=== PATIENT | male | born 1975 | race Two or more races ===

== ENCOUNTER → 2021-07-23 09:40 | Outpatient (BNVA) | payer SELFPAY | PROVIDERS: Visit Provider Internal Medicine | DX: Z02.79 Encounter for issue of other medical certificate (principal) ==

== ENCOUNTER → 2022-07-04 10:00 | Outpatient (BNVA) | payer SELFPAY | PROVIDERS: Visit Provider Physician Assistant Medical | DX: Z02.79 Encounter for issue of other medical certificate (principal) ==

== ENCOUNTER → 2023-07-05 09:17 | Outpatient (BNVA) | payer SELFPAY | PROVIDERS: Visit Provider Physician Assistant Medical | DX: Z02.79 Encounter for issue of other medical certificate (principal) ==

== ENCOUNTER → 2024-06-24 09:46 | Outpatient (BNVA) | payer SELFPAY | PROVIDERS: Visit Provider Internal Medicine | DX: Z02.79 Encounter for issue of other medical certificate (principal) ==

== ENCOUNTER 2025-04-23 08:56 | Outpatient (AMB) | payer OTHER, SELFPAY ==
--- OUTSIDE RECORDS SUMMARY | 2024-02-09 06:07 | XMS_ITS | Encounter Summary ---
Author Organization [facility] Address [address] [place] [address] Care Team Providers Care Machine Plate Stacker Name Role Phone Adolfo Treviño MD Primary Care Provider [phone] Encounter Details Date Type Department Care Team (Latest Contact Info) Description 02/09/2024 7:07 AM EDT Hospital Encounter TH HISTORIC ENCOUNTERS EASTERN CONVERSION ONLY Maddie Diaz PA [address] [place] [address] Hepatic fibrosis, unspecified Social History Tobacco Use Types Packs/Day Years Used Date Smoking Tobacco: Former Cigarettes 0.5 Q uit: 01/30/2020 Smokeless Tobacco: Former Alcohol Use Standard Drinks/Week Comments Yes 0 (1 standard drink = 0.6 oz pur e alcohol) Sex and Gender Information Value Date Recorded Sex Assigned at Not on file Legal Sex Male 6:18 PM EST Gender Identity Not on file Sexual Orientation Not on file documented as of this encounter Plan of Treatment Upcoming Encounters Date Type Department Care Team (Late st Contact Info) Description 05/09/2025 10:30 AM EST Office Visit Internal [facility] - [facility] [address] [facility] [place] [address] Bel Fortune NP [address] [place] [address] documented as of this encounter Procedures Procedure Name Priority Date/Time Associated Diagnosis Comments TISSUE EXAM Routine 02/12/2024 12:00 AM EDT US LIVER BIOPSY Routine 02/09/2024 9:53 AM EDT Hepatic fibrosis, unspecified documented in this encounter Results * Tissue exam (02/12/2024 12:00 AM EDT) Case Results LIVER, RANDOM-BIOPSY: - LIVER WITH MILD MACROSTEATOSIS (15%), LOBULAR CHRONIC INFLAMMATION (2-4 FOCI PER 200X MAGNIFICATION), AND BALLOONED HEPATOCYTES, COMPATIBLE WITH NON-ALCOHOLIC STEATOHEPATITIS (NICE). - PORTAL, ANABELLE-PORTAL, AND LOBULAR FIBROSIS (MAREK-MORENO STAGE 2). - SPECIAL STAINS: - TRICHROME: shows portal, anabelle-portal, anabelle-cellular, and anabelle-venular fibrosis (Marek-Moreno stage 2). - IRON: negative. - PAS-D: negative for alpha-1, anti-trypsin globules. - Controls stain appropriately. Note: The biopsy is notable for mild macrosteatosis (15%) with lobular chronic inflammation (2-4 foci per 200x magnification) and ballooned hepatocytes (some in microclusters). The NICE activity score is 5 of 8, and is definite for NICE by pathologic scoring criteria. There is also mild portal chronic inflammation and anabelle-portal and lobular fibrosis. The patient's laboratory values are noted: AST - 106, ALT - 221, ALK. P. - 99, T. bili - 0.8, NATY - negative, ASMA - negative, AMA - negative. Hortencia Hunter M.D. , Pathologist (Case electronically signed 02 12 2024) Pre-Op/Clinical Diagnosis: RANDOM LIVER CORE BIOPSY, ELEVATED LFTS Specimen and Site: LIVER, RANDOM-BIOPSY Gross Description: Labeled random core liver biopsy . Received in formalin are three soft, snowden-brown tissue cores, ranging from 1.6 x 0.1 cm to 1.9 x 0.1 cm, which are wrapped in paper and submitted in toto in one cassette, three pieces, x3. TS Physicians: MADDIE DIAZ M.D./ / FARHEEN FONTANEZ MD/ / HISTORICAL TESTING LAB RESULTING AGENCY 02/12/2024 us Laboratory Results Historical MD LAB PATHOLOGY O GERRY Final Result HISTORICAL TESTING LAB RESULTING AGENCY * US LIVER BIOPSY (02/09/2024 9:53 AM EDT) Anatomical Region Laterality Modality Ultrasound 02/09/2024 7:27 AM EDT Narrative 02/09/2024 9:53 AM EDT [facility] Diagnostic Imaging Department [address] [place] [address] Patient: MATT AGUILA D.O.B./Age/Sex: 1975 - 48 - M Unit#: [id number] Location/Status: [facility] Mnemonic/Ordering Site: LIVERBX/SPUS Ordering Physician: MADDIE DIAZ US Liver Biopsy - 02/09/24 - 0859 Report Status:Signed Ultrasound-guided liver biopsy INDICATION: Elevated LFTs TECHNIQUE/procedure: Patient was placed supine on the ultrasound procedures table. Preliminary ultrasound does not demonstrate any focal liver lesion. A site on the right upper abdomen was marked and sterilely prepped and draped. Following the administration of 1% LIDOCAINE for local anesthesia, the liver was accessed with a 17-gauge coaxial needle. 3 18-gauge core needle biopsy specimens were then obtained. The specimens were deemed to be adequate and placed in formalin. The coaxial needle was then withdrawn while delivering a Gelfoam slurry. Post procedure images do not demonstrate any evidence of bleeding or other complication. A dressing was applied. Patient tolerated the procedure well no immediate complication. Sedation: Moderate intravenous sedation was initiated and maintained for 30 minutes while the patient was independently monitored by the radiology nurse under the supervision of the interventional radiologist. VERSED and fentanyl administered during the procedure. IMPRESSION: Ultrasound-guided liver biopsy Dictating Physician: FARHEEN FONTANEZ MD Electronically Signed by: FARHEEN FONTANEZ MD Dic Date/Time: 02/09/24950 Sign date/Time: 02/09/24952 Procedure Note Farheen Fontanez MD - 02/27/2024 [facility] Diagnostic Imaging Department [address] [place] [address] Patient: MATT AGUILA./Age/Sex: 1975 - 48 -M Unit#: [id number] Location/Status: [facility] Mnemonic/Ordering Site: LIVERBX/SPUS Ordering Physician: MADDIE DIAZ Liver Biopsy - 02/09/24 - 59 Report Status:Signed Ultrasound-guided liver biopsy INDICATION: Elevated LFTs TECHNIQUE/procedure: Patient was placed supine on the ultrasound procedures table.Preliminary ultrasound does not demonstrate any focal liver lesion. A site on theright upper abdomen was marked and sterilely prepped and draped. Followingthe administration of 1% LIDOCAINE for local anesthesia, the liver wasaccessed with a 17-gauge coaxial needle. 3 18-gauge core needle biopsy specimens werethen obtained. The specimens were deemed to be adequate and placed informalin. The coaxial needle was then withdrawn while delivering a Gelfoam slurry.Post procedure images do not demonstrate any evidence of bleeding or other complication. A dressing was applied. Patient tolerated the procedurewell no immediate complication. Sedation: Moderate intravenous sedation was initiated and maintained for30 minutes while the patient was independently monitored by the radiologynurse under the supervision of the interventional radiologist. VERSED andfentanyl administered during the procedure. IMPRESSION: Ultrasound-guided liver biopsy Dictating Physician: FARHEEN FONTANEZ MD Electronically Signed by: FARHEEN FONTANEZ MD Dic Date/Time: 02/09/2451 Sign date/Time: 02/09/2453 us Maddie BOSS IMG US PROCEDURES Final Resul t documented in this encounter Visit Diagnoses Diagnosis Hepatic fibrosis, unspecified documented in this encounter Care Teams Machine Plate Stacker Relationship Specialty Start Date End Date Adolfo Treviño MD PCP - General 11/17/22 03/20/24 documented as of this encounter
--- OUTSIDE RECORDS SUMMARY | 2025-04-23 09:01 | XMS_ITS | Encounter Summary ---
Author Organization [facility] Prior to 03/01/2024 Address [address] [place] [address] Care Team Providers Care Technology Applications Consultant Name Role Phone Michael Bowers MD Primary Care Provider Unavail able Eric Mariscal MD Primary Care Provider Unavailab Cassi Sanches Primary Care Provider Unavailabl Eric Arias MD Primary Care Provider Unavailab Aldair Mireles MD Primary Care Provider Unavail able Eric Britt PA-C Primary Care Provider Unava Adolfo Navarro MD Primary Care Provider Ambreen jensen Encounter Details Date Type Department Care Team Description 12/30/2010 Manager Of Care Report Medical Records [address] [place] [address] Ferimn Lentz Social History Tobacco Use Types Packs/Day Years Used Date Smoking Tobacco: Every Day Comments:4-5 cigarettes florina y Alcohol Use Standard Drinks/Week Comments Not Asked 0 (1 standard drink = 0.6 oz pur e alcohol) Sex Assigned at Date Recorded Not on file Job Start Date Occupation Industry Not on file Not on file Not on file documented as of this encounter Plan of Treatment Not on file documented as of this encounter Visit Diagnoses Not on filedocumented in this encounter Care Teams Technology Applications Consultant Relationship Specialty Start Date End Date Michael Bowers MD PCP - General 11/25/10 06/04/12 Eric Mariscal MD PCP - General Internal Medicine 06/05/12 11/20/16 Cassi Haynes PCP - General Internal Medicine 11/21/16 12/07/16 Eric Mariscal MD PCP - General Internal Medicine 12/08/16 04/12/20 Aldair Hunter MD PCP - General Internal Medicine 04/13/20 12/31/20 Eric Britt PA-C PCP - General Internal Medicine 01/01/21 05/20/21 Adolfo Treviño MD PCP - General Family Practice 05/21/21 documented as of this encounter
--- OUTSIDE RECORDS SUMMARY | 2025-04-23 09:01 | XMS_ITS | Encounter Summary ---
Author Organization [facility] Prior to 03/01/2024 Address [address] [place] [address] Care Team Providers Care Adobe Layer Helper Name Role Phone LisaCassi miramontes Primary Care Provider Eric Birmingham MD Primary Care Provider Unavailab Aldair Mireles MD Primary Care Provider Unavail Eric Mckeon PA-C Primary Care Provider Adolfo Judge MD Primary Care Provider Ambreen jensen Reason for Visit * Reason Onset Date Comments APPOINTMENT 11/28/2016 Encounter Details Date Type Department Care Team Description 11/28/2016 Telephone Radiology - [address] [address] Eric Mariscal MD APPOINTMENT Social History Tobacco Use Types Packs/Day Years Used Date Smoking Tobacco: Former Cigarettes 0.5 Q uit: 01/29/2011 Smokeless Tobacco: Former Comments:4-5 cigarettes florina y Alcohol Use Standard Drinks/Week Comments Yes 0 (1 standard drink = 0.6 oz pur e alcohol) 2 beers per week Sex Assigned at Date Recorded Not on file Job Start Date Occupation Industry Not on file Not on file Not on file documented as of this encounter Miscellaneous Notes * Telephone Encounter - Xena Gay - 11/28/2016 11:17 AM EDT F.y.i. Orders for an echocardiogram will be removed from our schedule after several failed attemptsto schedule. A new order will need to be entered if this is needed in the future. Thank you documented in this encounter Plan of Treatment Not on file documented as of this encounter Visit Diagnoses Not on filedocumented in this encounter Care Teams Adobe Layer Helper Relationship Specialty Start Date End Date Cassi Haynes PCP - General Internal Medicine 11/21/16 12/07/16 Eric Mariscal MD PCP - General Internal Medicine 12/08/16 04/12/20 Aldair Hunter MD PCP - General Internal Medicine 04/13/20 12/31/20 Eric Britt PA-C PCP - General Internal Medicine 01/01/21 05/20/21 Adolfo Treviño MD PCP - General Family Practice 05/21/21 documented as of this encounter
--- OUTSIDE RECORDS SUMMARY | 2025-04-23 09:01 | XMS_ITS | Encounter Summary ---
Author Organization [facility] Prior to 03[facility]01[facility]24 Address [address] [place] [address] Care Team Providers Care Welfare Supervisor Name Role Phone Adolfo Treviño MD Primary Care Provider Ambreen jensen Encounter Details Date Type Department Care Team Description 05/05/2023 Telephone Gastroenterology - [place] [address] [facility] [address] [place] [address] Maddie Diaz DScPAS Social History Tobacco Use Types Packs/Day Years Used Date Smoking Tobacco: Former Cigarettes 0.5 18 Q uit: 01/30/2020 Smokeless Tobacco: Former Comments:4-5 cigarettes florina y Alcohol Use Standard Drinks/Week Comments Yes 0 (1 standard drink = 0.6 oz pur e alcohol) 2 beers per week Sex Assigned at Date Recorded Not on file Job Start Date Occupation Industry Not on file Not on file Not on file documented as of this encounter Miscellaneous Notes * Telephone Encounter - Pipe Kwok PA-C - 05/05/2023 12:18 PM EST Lab needed code change for diagnosis for lab but none of these numbers are excepted by our computer * Telephone Encounter - Kia Moreno C.M.A. - 05/05/2023 8:56 AM EST HEMOCHROMATOSIS DNA MUTA (Order #[id number]) on 05/04/23 Maurizio Betancur The lab called and said that the Dx code needs to be change on this lab order can you please changethis out for Veda as it can not wait until she is in the office on Monday. They said one of these codes needs to be placed to get covered E83.01 E83.110 E83.118 E83.119 E83.19 Thank you so much documented in this encounter Plan of Treatment Not on file documented as of this encounter Visit Diagnoses Not on filedocumented in this encounter Care Teams Welfare Supervisor Relationship Specialty Start Date End Date Adolfo Treviño MD PCP - General Family Practice 05/21/21 documented as of this encounter
--- OUTSIDE RECORDS SUMMARY | 2025-04-23 09:01 | XMS_ITS | Encounter Summary ---
Author Organization [facility] Address [address] [place] [address] Care Team Providers Care Gauge Maker Apprentice Name Role Phone Catherine Valles MD Primary Care Provider [phone] Encounter Details Date Type Department Care Team (Late st Contact Info) Description 03/05/2025 [facility] [address] [facility] [place] [phone] Bel Fortune NP [address] [facility] [place] [address] Social History Tobacco Use Types Packs/Day Years [...] AM EST [facility] [address] [facility] [place] [phone] Bel Fortune NP [address] [facility] [place] [address] documented as of this encounter Visit Diagnoses Not on filedocumented in this encounter Additional Health Concerns Assessment Noted Time PHQ-9 Depression Total Score: 0 03/05/20 10:45 AM EST documented as of this encounter Care Teams Gauge Maker Apprentice Relationship Specialty Start Date End Date Catherine Valles MD [address] [facility] [place] [address] PCP - General Internal Medicine 04/07/25 documented as of this encounter
--- OUTSIDE RECORDS SUMMARY | 2025-04-23 09:01 | XMS_ITS | Clinical Summary ---
Author Organization [address] [facility] Address [address] [place] [address] Phone Care Team Providers Care Production Team Member Name Role Phone Catherine Valles MD Primary Care Provider Allergies No known active allergies Medications metoprolol succinate (TOPROL-XL) 50 mg 24 hr tablet Take 1 tablet (50 mg total) by mouth 1 (one) time each day. Do not crush or chew. 30 each 1 03/05/2025 Active Active Problems Problem Noted Date Diagnosed Date Primary hypertension 03/05/2025 NICE (nonalcoholic steatohepatitis) 02/15/2024 Class 2 obesity due to exces s calories without serious comorbidity with body mass index (BMI) of 37.0 to 37.9 in adult 02/15/2024 Nephrolithiasis 05/06/2020 Fatty liver 05/06/2020 CTS (carpal tunnel syndrome) 12/14/2016 Overview (02/15/2024): EMG 12/15 Chronic heartburn 10/23/2013 Elevated LFTs 06/25/2012 Encounters Date Type Department Care Team Description 03/05/2025 10:45 AM EST Office Visit Internal Medicine - [facility] [address] [place] [phone] Bel Fortune NP Primary hypertension (Primary Dx); Palpitations; Acute non intractable tension-type headache 03/05/2025 Results Follow-Up Internal Medicine - [facility] [address] [place] [address] Bel Fortune NP 02/27/2025 10:00 AM EDT Ancillary Procedure [facility] - [facility] [address] [facility] [address] [place] [address] Palpitations 02/05/2025 10:00 AM EDT [facility] [address] [place], [place] [phone] Bel Fortune NP Elevated blood pressure reading (Primary Dx); Palpitations; Nonintractable headache, unspecified chronicity pattern, unspecified headache type; Elevated LFTs; Fatty liver; Class 2 obesity due to excess calories without serious comorbidity with body mass index (BMI) of 37.0 to 37.9 in adult from Last 3 Months Immunizations Immunization Administration Dates Next Due Td Tetanus diptheria (Tdvax) 7yo and older 09/22 Tdap Tetanus diptheria acell ular pertussis (Boostrix; Adacel) 7yo and older 11/30/2010 Surgical History Surgery Date Site/Laterality Comments OTHER SURGICAL HISTORY PROCEDURE: ---- OTHER ----; COMMENT: kidney stone Medical History Medical History Date Comments Elevated LFTs 06/25/2012 DX:Elevated LFTs Headache(784.0) 01/16/2013 DX:Headache(784. 0); COMMENT: Dr. Vasquez - 01/14/13 -- daily pressure-like diffuse headaches; physical therapy for myofascial release; followup 3 months Primary hypertension 03/05/2025 Family History Medical History Relation Name Comments Hypertension Father Stroke Father Hypertension Mother Hypertension Sister Blindness Neg Hx Cataracts Neg Hx Diabetes Neg Hx Glaucoma Neg Hx Macular degeneration Neg Hx Other cancer Neg Hx Strabismus Neg Hx Relation Name Status Comments Father Mother Sister Social History Tobacco Use Types Packs/Day Years [...] on file Sexual Orientation Not on file Last Filed Vital Signs Vital Sign Reading Time Taken Comments Blood Pressure 139/92 03/05/2025 10:56 AM EST Pulse 69 03/05/2025 10:44 AM EST Temperature 36.4 C (97.6 F) 01/15/2025 9:14 AM EDT Respiratory Rate - - Oxygen Saturation 97% 01/15/2025 9:14 AM EDT Inhaled Oxygen Concentration - - Weight 114 kg (252 lb 3.2 oz) 03/05/2025 10:44 A M EST Height 172.7 cm (5' 8 ) 03/05/2025 10:44 AM EST Body Mass Index 38.35 03/05/2025 10:44 AM EST Plan of Treatment Upcoming Encounters Date Type Department Care Team (Late st Contact Info) Description 05/09/2025 10:30 AM EST [facility] [address] [place] [address] Bel Fortune, JACKLYN [address] [place] [address] Health Maintenance Due Date Last Done Comments Hepatitis B Vaccines (1 of 3 - 19+ 3-dose series) 1996 HIV Screening 04/05/2022 Social Influencers of Health Screening 04/05/2022 COVID-19 Vaccine (4 - 2024-2 6 season) 2024 06/02/2021, 08/29/2020, 08/01/2020 Influenza Vaccine (#1) 2024 Hypertension/CHF/CAD Annual BMP Blood Test 03/05/2025 05/04/2023, 11/12/2019 Cholesterol Screening (Lipid Panel) 05/07/2025 05/07/2020 DTaP,Tdap,and Td Vaccines (4 - Td or Tdap) 09/22/2029 09/23/2019, 11/30/2010, 01/29/2007 Colorectal Cancer Screening: Colonoscopy 09/12/2032 09/12/2022 RSV Immunization Adult Patients (1 - 1-dose 75+ series) 2052 Hepatitis C Screening Completed 06/15/2021 Depression Screening Completed 03/05/2025 HIB Vaccines Aged Out No longer eligi ble based on patient's age to complete this topic HPV Vaccines Aged Out No longer eligi ble based on patient's age to complete this topic Hepatitis A Vaccines Aged Out No long er eligible based on patient's age to complete this topic IPV Vaccines Aged Out No longer eligi ble based on patient's age to complete this topic MMR Vaccines Aged Out No longer eligi ble based on patient's age to complete this topic Meningococcal ACWY Vaccine Aged Out N o longer eligible based on patient's age to complete this topic Meningococcal B Vaccine Aged Out No l onger eligible based on patient's age to complete this topic Pneumococcal Vaccine: Pediatrics (0 to 5 Years) and At-Risk Patients (6 to 49 Years) Aged Out No longer eligible b ased on patient's age to complete this topic RSV Immunization Patients Under 20 months Aged Out No longer eligible b ased on patient's age to complete this topic Varicella Vaccines Aged Out No longer eligible based on patient's age to complete this topic Procedures Procedure Name Priority Date/Time Associated Diagnosis Comments CARDIAC HOLTER MONITOR (REPORT GENERATED IN HOUSE) Routine 02/27/2025 9:46 AM EDT Palpitations ANNUAL BMP BLOOD TEST Routine 05/04/2023 EXTERNAL COLONOSCOPY REPORT Routine 09/12/2022 3:34 PM EDT HEPATITIS C SCREENING Routine 06/15/2021 LIPID PANEL Routine 05/07/2020 from Last 3 Months or Most Recently Relevant to Health Maintenance Results * CARDIAC HOLTER MONITOR (REPORT GENERATED IN HOUSE) (02/27/2025 9:46 AM EDT) Anatomical Region Laterality Modality Cardiac Diagnost ic Narrative 03/04/2025 12:23 PM EST [facility] DI[facility]STIC [facility]ING DEPARTMENT [address] [place] [address] TEL: FAX: Type of test: 48 hour Holter Monitor Date of test: 02/27/25 Ordering provider: Bel Tong, PROPERTY MANAGEMENT COORDINATOR Reason for Test: Palpitations PVCA Cadd Operator Findings: 1: The predominant rhythm was Normal Sinus Rhythm. 2: Two PACs. No PVCs. 3: No pauses noted. Longest R-R 1.2 sec. 4: Diary returned with no entries. Impression: Normal sinus rhythm with no significant documented arrhythmias or bradycardia. Result [facility] Bel Fortune PROPERTY MANAGEMENT COORDINATOR CV CARDIAC SERVICES PROCEDURES Final Result * Annual BMP Blood Test (05/04/2023) Pathologist [facility] Annual BMP Blood Test Abstracted Result [facility] Provider HEALTH MAINTENANCE Final Result * External Colonoscopy Report (09/12/2022 3:34 PM EDT) Anatomical Region Laterality Modality Endoscopy Result [facility] Provider GI~PROCEDURE ORDERABLES F inal Result * Hepatitis C Screening (06/15/2021) Pathologist [facility] Hepatitis C Screening Abstracted Result [facility] Provider HEALTH MAINTENANCE Final Result * (ABNORMAL) Lipid panel (05/07/2020) [facility] LDL/HDL Ratio 5(A) 0 - 4 Triglycerides 226(A) 0 - 150 mg/dL Cholesterol 185 0 - 200 mg/dL HDL 40 >=40 mg/dL LDL Cholesterol 100 0 - 100 mg/dL Blood Venous blood specimen / Unknown Result [facility] Provider LAB BLOOD ORDERABLES Carey l Result from Last 3 Months or Most Recently Relevant to Health Maintenance Insurance [facility] PUBLIC [facility] Advance Directives Documents on File Type Date Recorded Patient Sybase Developer Expl anation Health Care Decision (hx) 03/07/2011 AD CHAVEZ DIRECTIVE Health Care Decision (hx) 03/07/2011 AD CHAVEZ DIRECTIVE Health Care Decision (hx) 03/07/2011 AD CHAVEZ DIRECTIVE Health Care Decision (hx) 03/07/2011 AD CHAVEZ DIRECTIVE Health Care Decision (hx) 03/07/2011 AD CHAVEZ DIRECTIVE Health Care Decision (hx) 03/07/2011 AD CHAVEZ DIRECTIVE Care Teams Production Team Member Relationship Specialty Start Date End Date Catherine Valles MD [address] [facility] [place] [address] PCP - General Internal Medicine 04/07/25
--- OUTSIDE RECORDS SUMMARY | 2025-04-23 09:01 | XMS_ITS | Encounter Summary ---
Author Organization [facility] Prior to 03/01/2024 Address [address] [place] [address] Care Team Providers Care Lace And Textiles Restorer Name Role Phone Adolfo Treviño MD Primary Care Provider Ambreen jensen Reason for Visit * Reason Onset Date Comments medication problems 02/23/2024 Encounter Details Date Type Department Care Team Description 02/23/2024 Telephone Gastroenterology - [place] [address] [facility] [address] [place] [address] Maddie Diaz DScPAS medication problems Social History Tobacco Use Types Packs/Day Years [...] encounter Miscellaneous Notes * Telephone Encounter - Anastasiia Davis - 02/23/2024 11:26 AM EDT Received a call that this rx needs to go through [facility] not the local pharmacy. Fax number [phone] documented in this encounter Plan of Treatment Not on file documented as of this encounter Visit Diagnoses Not on filedocumented in this encounter Care Teams Lace And Textiles Restorer Relationship Specialty Start Date End Date Adolfo Treviño MD PCP - General Family Practice 05/21/21 documented as of this encounter
--- OUTSIDE RECORDS SUMMARY | 2025-04-23 09:01 | XMS_ITS | Encounter Summary ---
[facility] to [facility]24 Address [address] [place] [address] Care Team Providers Care Crusher Feeder Name Role Phone Adolfo Treviño MD Primary Care Provider Ambreen jensen Reason for Visit * Reason Onset Date Comments Prior Authorization 02/28/2024 Encounter Details Date Type Department Care Team Description 02/28/2024 Telephone Gastroenterology - [place] [address] [facility] [address] [place] [id number] Maddie Diaz DScPAS Prior Authorization Social History Tobacco Use Types Packs/Day Years [...] encounter Miscellaneous Notes * Telephone Encounter - Gil Neal M.A. - 02/28/2024 4:21 PM EDT PA submitted on [facility] Dx Code - K76.0 TEX PA returned [facility] does not handle the prior auth for this medication. Will call for more information tomorrow during business hours. * Telephone Encounter - Lana Cameron - 02/28/2024 3:42 PM EDT Prior Authorization for Medication-do not complete and send this encounter unless you have the fax from the pharmacy. Is this a Cover My Meds request: Yes -- [place] Code [id number] Name of Medication Resmetirom (Rezdiffra) Dose of Medication 100 MG Tab What is the RX # from the faxed refill? How does patient take this med? Take 1 Tablet by mouth daily What Pharmacy did the fax come from: [facility] Pharmacy fax #: [phone] documented in this encounter Plan of Treatment Not on file documented as of this encounter Visit Diagnoses Not on filedocumented in this encounter Care Teams Crusher Feeder Relationship Specialty Start Date End Date Adolfo Treviño MD PCP - General Family Practice 05/21/21 documented as of this encounter
--- OUTSIDE RECORDS SUMMARY | 2025-04-23 09:01 | XMS_ITS | Encounter Summary ---
Author Organization [facility] Prior to 03/01/2024 Address [address] [place] [address] Care Team Providers Care President Ergonomic Consulting Name Role Phone Adolfo Treviño MD Primary Care Provider Ambreen jensen Encounter Details Date Type Department Care Team Description 01/11/2024 Telephone Gastroenterology - [place] [address] [facility] [address] [place] [address] Maddie Diaz DScPAS Social History [...] on filedocumented in this encounter Care Teams President Ergonomic Consulting Relationship Specialty Start Date End Date Adolfo Treviño MD PCP - General Family Practice 05/21/21 documented as of this encounter
--- OUTSIDE RECORDS SUMMARY | 2025-04-23 09:01 | XMS_ITS | Encounter Summary ---
[facility] Address [address] [place] [address] Care Team Providers Care Conveyor System Dispatcher Name Role Phone Adolfo Treviño MD Primary Care Provider Ambreen jensen Encounter Details Date Type Department Care Team Description 01/14/2024 Telephone Gastroenterology - [place] [address] [facility] [address] [place] [address] Maddie Diaz DScPAS Social History [...] encounter Miscellaneous Notes * Telephone Encounter - Kia Moreno C.M.A. - 01/30/2024 1:43 PM EDT Left another message with Debbie * Telephone Encounter - Kia Moreno C.M.A. - 01/29/2024 10:55 AM EDT Left a detailed message with debbie to see if we can gewt the liver biopsy changed to a Monday * Telephone Encounter - Kia Moreno C.M.A. - 01/23/2024 10:17 AM EDT Patient would like to move forward with liver biopsy * Telephone Encounter - Rachna Muñoz - 01/16/2024 3:06 PM EDT LM for pt to call back. documented in this encounter Plan of Treatment Not on file documented as of this encounter Visit Diagnoses Not on filedocumented in this encounter Care Teams Conveyor System Dispatcher Relationship Specialty Start Date End Date Adolfo Treviño MD PCP - General Family Practice 05/21/21 documented as of this encounter
--- OUTSIDE RECORDS SUMMARY | 2025-04-23 09:01 | XMS_ITS | Encounter Summary ---
Author Organization [facility] Prior to 03/01/2024 Address [address] [place] [address] Care Team Providers Care Navy Seal Name Role Community Services ManagerEric Mariscal MD Primary Care Provider UnavailCassi Hidalgo Primary Care Provider Unavailabl Eric Arias MD Primary Care Provider Unavailab Aldair Mierles MD Primary Care Provider Unavail able Eric Britt PA-C Primary Care Provider Adolfo Judge MD Primary Care Provider Ambreen jensen Encounter Details Date Type Department Care Team Description 01/18/2014 [facility] Medical Records [address] [place] [address] Abstract, Provider Social History Tobacco Use Types Packs/Day Years Used Date Smoking Tobacco: Former Cigarettes 0.5 Q uit: 01/29/2011 Smokeless Tobacco: Never Comments:4-5 cigarettes florina y Alcohol Use Standard Drinks/Week Comments Yes 0 (1 standard drink = 0.6 oz pur e alcohol) 2 beers per week Sex Assigned at Date Recorded Not on file Job Start Date Occupation Industry Not on file Not on file Not on file documented as of this encounter Plan of Treatment Not on file documented as of this encounter Procedures Procedure Name Priority Date/Time Associated Diagnosis Comments OUTSIDE LAB Routine 10/30/2013 documented in this encounter Results * OUTSIDE LAB (10/30/2013) Provider Abstract LAB documented in this encounter Visit Diagnoses Not on filedocumented in this encounter Care Teams Navy Seal Relationship Specialty Start Date End Date Eric Mariscal MD PCP - General Internal [...]
--- OUTSIDE RECORDS SUMMARY | 2025-04-23 09:01 | XMS_ITS | Clinical Summary ---
Author Organization [facility] Prior to 09/28/24 Address [address] [place] [address] Care Team Providers Care Spray Gun Repairer Helper Name Role Phone Adolfo Treviño MD Primary Care Provider Unavailable Allergies No known active allergies Medications No known medications Social History Tobacco Use Types Packs/Day Years Used Date Smoking Tobacco: Former Cigarettes Q uit: 2020 Tobacco Cessation:Counseling Given: Not Answered Alcohol Use Standard Drinks/Week Comments Yes 0 (1 standard drink = 0.6 oz pure alcohol) 2-3 beers on Fridays and Saturdays but not every weekend Sex and Gender Information Value Date Recorded Sex Assigned at Not on file Gender Identity Not on file Sexual Orientation Not on file Job Start Date Occupation Industry Not on file Not on file Not on file Last Filed Vital Signs Vital Sign Reading Time Taken Comments Blood Pressure 149/90 02/08/2023 10:11 AM EDT Pulse 78 02/08/2023 10:11 AM EDT Temperature 36.7 C (98 F) 02/08/2023 10:11 AM EDT Respiratory Rate - - Oxygen Saturation 94% 02/08/2023 10:11 AM EDT Inhaled Oxygen Concentration - - Weight 111.1 kg (245 lb) 02/08/2023 10:11 AM EDT Height 172.7 cm (5' 8 ) 02/08/2023 10:11 AM EDT Body Mass Index 37.25 02/08/2023 10:11 AM EDT Plan of Treatment Health Maintenance Due Date Last Done Comments Hepatitis B Vaccines (1 of 3 - 3-dose series) 1977 Hepatitis C Screening 1977 COVID-19 Vaccine (#1) 01/29/1978 Depression Screening 1989 Preventative Health Evaluation 07/31/1995 DTap / Tdap / Td (2 - Td or Tdap) 11/30/2020 11/30/2010, 01/29/2007 Colon Cancer Screening (Colonoscopy) 2022 Influenza Vaccine (#1) 2024 Pneumococcal Vaccine Aged Out No long er eligible based on patient's age to complete this topic RSV Ped < 20 months Aged Out No longe r eligible based on patient's age to complete this topic Care Teams Spray Gun Repairer Helper Relationship Specialty Start Date End Date Adolfo Treviño MD PCP - General Family Medicine 11/17/22
--- OUTSIDE RECORDS SUMMARY | 2025-04-23 09:01 | XMS_ITS | Encounter Summary ---
Author Organization [facility] Prior to 03/01/2024 Address [address] [place] [address] Care Team Providers Care Fiberglass Luggage Molder Name Role Phone Adolfo Treviño MD Primary Care Provider Ambreen jensen Encounter Details Date Type Department Care Team Description 02/23/2024 Refill Gastroenterology - [place] [address] [facility] [address] [place] [address] Maddie Diaz DScPAS Social History [...] Telephone Encounter - Kia Moreno C.M.A. - 02/23/2024 11:43 AM EDT Rx went to the wrong pharmacy, medication is pending with proper pharmacy. documented in this encounter Plan of Treatment Not on file documented as of this encounter Visit Diagnoses Not on filedocumented in this encounter Care Teams Fiberglass Luggage Molder Relationship Specialty Start Date End Date Adolfo Treviño MD PCP - General Family Practice 05/21/21 documented as of this encounter
--- OUTSIDE RECORDS SUMMARY | 2025-04-23 09:01 | XMS_ITS | Encounter Summary ---
Author Organization [facility] Prior to 03/01/2024 Address [address] [place] [address] Care Team Providers Care Tare Worker Name Role Phone Michael Bowers MD Primary Care Provider Unavail Eric Lopez MD Primary Care Provider Unavailab Cassi Sanches Primary Care Provider UnavailEric Pierce MD Primary Care Provider Unavailab Aldair Mireles MD Primary Care Provider Unavail able Eric Britt PA-C Primary Care Provider Chantelleva Adolfo Navarro MD Primary Care Provider Ambreen jensen Encounter Details Date Type Department Care Team Description 11/29/2010 Release of Information Medical Records [address] [place] [address] Abstract, Provider Social History Tobacco Use Types [...] on filedocumented in this encounter Care Teams Tare Worker Relationship Specialty Start Date End Date Michael Bowers MD PCP - General 11/25/10 06/04/12 Eric Mariscal MD PCP - General Internal Medicine 06/05/12 11/20/16 Cassi Haynes PCP - General Internal Medicine 11/21/16 12/07/16 Eric aMriscal MD PCP - General Internal Medicine 12/08/16 04/12/20 Aldair Hunter MD PCP - General Internal Medicine 04/13/20 12/31/20 Eric Britt PA-C PCP - General Internal Medicine 01/01/21 05/20/21 Adolfo Treviño MD PCP - General Family Practice 05/21/21 documented as of this encounter
--- OUTSIDE RECORDS SUMMARY | 2025-04-23 09:01 | XMS_ITS | Encounter Summary ---
Author Organization [facility] Prior to 03/01/2024 Address [address] [place] [address] Care Team Providers Care Vice President Of Development Name Role Design Engineer ProductsEric Mariscal MD Primary Care Provider UnavailCassi Hidalgo Primary Care Provider Unavailabl e Eric Mariscal MD Primary Care Provider Unavailab Aldair Mireles MD Primary Care Provider Unavail able Eric Britt PA-C Primary Care Provider Adolfo Judge MD Primary Care Provider Ambreen jensen Encounter Details Date Type Department Care Team Description 07/17/2012 Transfer Records Medical Records [address] [place] [id number] Abstract, Provider Social History Tobacco Use Types Packs/Day Years Used Date Smoking Tobacco: Former Cigarettes 0.5 Q uit: 01/29/2011 Comments:4-5 cigarettes florina y Alcohol Use Standard [...] on filedocumented in this encounter Care Teams Vice President Of Development Relationship Specialty Start Date End Date Eric [...]
--- OUTSIDE RECORDS SUMMARY | 2025-04-23 09:02 | XMS_ITS | Encounter Summary ---
Author Organization [facility] Prior to 03/01/2024 Address [address] [place] [address] Care Team Providers Care Windows Server Engineer Name Role Phone Eric Britt PA-C Primary Care Provider Adolfo Judge MD Primary Care Provider Ambreen jensen Encounter Details Date Type Department Care Team Description 01/05/2021 Transfer Records Medical Records [address] [place] [address] Eric Britt PA-C Social History Tobacco Use Types Packs/Day Years [...] on filedocumented in this encounter Care Teams Windows Server Engineer Relationship Specialty Start Date End Date Eric Britt PA-C PCP - General Internal Medicine 01/01/21 05/20/21 Adolfo Treviño MD PCP - General Family Practice 05/21/21 documented as of this encounter
[2025-04-23 11:12] VITALS: BMI 37.5
--- NOTE | 2025-04-23 11:12 | MHC.OFFVISWM ---
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 *MAGNETIC LOCATER* Soft Water Mechanic Required: Yes Soft Water Mechanic Services: Soft Water Mechanic Present Information Interpreted: clinical only Allergies No Known Allergies Allergy (Verified 04/23/25 11:15) Medication List - Last Reconciled 04/23/25 by Damon Lucio MD metoprolol tartrate 25 mg PO DAILY HPI 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 *MAGNETIC LOCATER*: Details: Start time: 11.03am, End time: 12.03pm ?I spent 55 minutes speaking with the patient on the phone plus an additional 5 minutes reviewing and updating records for a total of 60 minutes HPI Comments Details: Previous weight loss efforts: Self diets and exercise Wakes up: 4.30am, Sleeps: 10pm Breakfast: (9am eggs and yogurt) Lunch: 12-1pm (eggs, plantains, chicken) Dinner: 6-7pm (meat, rice) Snacks: 9pm (snack) Exercise: none Beverages: Coffee (black, 1 cup/d), Tea: none, Soda: 2/week, Juice: 2/wk (cranberry juice), ETOH: beers x2/wk PFSH Medical History (Updated 04/23/25 @ 11:44 by Damon Lucio MD) Back pain Steatosis, liver Hypertension BMI 37.0-37.9, adult Obesity Surgical History (Updated 03/04/25 @ 11:57 by Noemi Balbuena CMA) No history of previous surgery Family History (Updated 03/04/25 @ 11:58 by Noemi Balbuena CMA) Mother Hypertension Father Hypertension Stroke Social History (Updated 03/04/25 @ 11:58 by Noemi Balbuena CMA) Alcohol intake: current Patient Tobacco Use Status: Former Tobacco user Physical Exam Vital Signs: BMI result Body Mass Index 37.5 Telehealth Telehealth Telehealth Platform: Telephone Location of provider rendering services: practice address Location of patient: address on file Patient Identification confirmed using: Name, : Yes Telehealth method: voice only Patient verbally consented to treatment: Yes Patient verbally consented to billing insurance company: Yes Patient informed of any privacy concerns related to visit: Yes Minutes spent on Phone/Video with Pt.: 60 Assessment & Plan Assessment & Plan (1) Obesity: Code(s): E66.9 - Obesity, unspecified Category: Medical Qualifiers: Obesity type: due to excess calories Obesity classification: adult class 2 (BMI 35 - 39.9) Serious obesity comorbidity presence: with serious comorbidity Body mass index: BMI 37.0-37.9 Qualified Code(s): E66.812 - Obesity, class 2; Z68.37 - Body mass index [BMI] 37.0-37.9, adult Plan: 1.? Plan for lap sleeve gastrectomy. If diaphragmatic or ventral hernias are present at time of surgery, these will be repaired laparoscopically as well. I emphasized the importance of close follow-up, adherence to instructions and good communication. The surgery does not replace the need to change your lifestlyle which is the cause of the obesity problem. The surgery provides the motivation to try again to change your lifestyle, it reduces the appetite and make the transition to a better lifestyle easier and doubles the amount of weight you would lose compared to doing the lifestyle change without the surgery. You will need to be on a liquid diet with protein shakes for 2 weeks before surgery to maximize weight loss and boost your nutritional status to recover better from surgery and also for the first two weeks after surgery to let the stomach heal before we introduce other foods. After the first 2 weeks we will introduce protein bars and soft foods like scrambled eggs, cottage cheese and yogurt and after the 6th week will introduce meat, fish and cooked vegetables in small amounts. Over time you should be able to eat everything in small amounts. Side effects like nausea, vomiting, heartburn or abdominal pain are not common in the practice unless you are not following in the practice. This operation requires lifetime commitment to following in our practice and communication with me. You will much less weight and experience side effects if you don?t communicate or not following in the practice. Complications are rare and in our practice is about 1/10 of the national average. However, you can develop bleeding that may require transfusion (hasn?t happened for year in the practice), you may from complications (we did not have any deaths in the practice) and infections. Infections are usually a result of breakdown in communication or not understanding or following directions correctly. They are difficult to treat, they can happen during the first 6 weeks, they may require to be in the hospital for weeks or even months, not being able to eat by mouth and you may have drains and surgeries to try and correct the issue. Other risks and complications include possible conversion to an open procedure, leaks, small bowel obstruction, blood clots, cardiac, or pulmonary complications, as termite helper complications such as ulcers, insufficient weight loss and vitamin deficiencies. 2. Nutritional counseling. Start with one premade PREMIER protein (buy at [employer] or [employer]) shake (mix 4oz of Premier mixed with 4oz low fat unsweetened almond milk each) at 6am-8am, one protein bar (Fit Crunch protein bar, buy at [employer], or [employer]) at 9am-11am, another premade PREMIER protein shake (mix 4oz of Premier mixed with 4oz low fat unsweetened almond milk each) at 12pm-2pm, another Fit Crunch protein bar at 3pm-5pm,? dinner at 6pm (10 forks of protein and 10 forks of salad/vegetables) and one more Fit Cruch protein bar after dinner at 8pm-10pm So you do 2 protein shakes, 3 protein bars and one meal per day. Meal to include lean meat (beef, fish, pork, turkey, chicken), or malay yogurt, or egg whites, or beans with a salad with olive oil and fruits (berries, pears, apples, kiwi). Avoid salt, breads, potatoes, rice, pasta, desserts. 3. Each shake would be drunk slowly, like coffee in a period of 2 hours. 4. Cut each bar in 4 pieces and eat each piece in 30min ?to make each bar last 2 hours. 5. I emphasized the importance of measuring accurately the food portion and measure it when serving the food in plate 6. The meal portions include 10 full-size forks of meat and 10 full-size forks of salad. You always eat the meat portion but you can replace up to 5 forks for salad/vegetables with rice, potatoes or pasta, or a fruit ?if you like. The less you do it the better weight loss will be. 7. One full-size fork is what it can be scooped on the fork without falling aside and not what can be bit with the fork. Use regular forks like those you find in a typical restaurant. 8.? Please buy the body composition scale we discussed and send me weight measurements as soon as possible and then once a week. Always include your diet and exercise plan. 9. If you decide to stay at the gym start treadmill with an incline of 2.0 and speed of 3.0. Increase incline by 1 every 3 min to a max incline of 8.0, stay 3min at 8.0 and then return to 2.0 and repeat same steps until calorie goal is met. Goal is to burn 2000 calories per week on exercise, which means either 300 calories daily, or 400 calories 5 days per week, or 500 calories 4 days per week, or 650 calories 3 days per week. 10. The best choice would be to purchase a stationary bike at home that can track calories. If you get one, please start stationary bike at a resistance level of 4.0 Increase level by 1.0 every 3 min to a max level of 10.0. Stay at this level for 3 min and then return to level 4.0 and repeat same steps until 300 calories are burned. Goal is to burn 2000 calories per week on exercise 11. I ordered a medication to help you with the weight loss which is called Zepbound. My office will try to authorize it. Please let me know when you receive it so I can give you a meal and exercise plan. Common side effects include nausea, vomiting, constipation, diarrhea, abdominal pain. Please let me know if you develop any of these symptoms. 12. Goal is to lose at least 1.5-2lbs per week 13. Goal to lose 10% of your weight before surgery, which is about 26lbs. Ultimate weight goal: 220lbs before surgery 14. Please follow the diet plan exactly without any change. If you don't like something about the plan or you feel hungry you need to communicate with me so I can help you revise the plan. You should not change the plan yourself 15. To be scheduled for EGD to assess the stomach's anatomy. The possibility of biopsies was discussed. Patient needs to avoid use of NSAIDs and aspirin for 1 week prior to EGD. You must be on liquids only the day before your endoscopy. Risks of perforation and bleeding was discussed with the patient. This will be an outpatient procedure with IV sedation. Orders: Orders Hemoglobin A1c Today E66.9 - Obesity, unspecified, I10 - Essential (primary) hypertension, K76.0 - Fatty (change of) liver, not elsewhere classified, Z68.37 - Body mass index [BMI] 37.0-37.9, adult H Pylori Breath Test Today E66.9 - Obesity, unspecified, I10 - Essential (primary) hypertension, K76.0 - Fatty (change of) liver, not elsewhere classified, Z68.37 - Body mass index [BMI] 37.0-37.9, adult Vitamin B12 and Folate Today E66.9 - Obesity, unspecified, I10 - Essential (primary) hypertension, K76.0 - Fatty (change of) liver, not elsewhere classified, Z68.37 - Body mass index [BMI] 37.0-37.9, adult C Reactive Protein Today E66.9 - Obesity, unspecified, I10 - Essential (primary) hypertension, K76.0 - Fatty (change of) liver, not elsewhere classified, Z68.37 - Body mass index [BMI] 37.0-37.9, adult Ferritin Today E66.9 - Obesity, unspecified, I10 - Essential (primary) hypertension, K76.0 - Fatty (change of) liver, not elsewhere classified, Z68.37 - Body mass index [BMI] 37.0-37.9, adult Vitamin D 25-OH Total Today E66.9 - Obesity, unspecified, I10 - Essential (primary) hypertension, K76.0 - Fatty (change of) liver, not elsewhere classified, Z68.37 - Body mass index [BMI] 37.0-37.9, adult US abdomen comp w elastography Today E66.9 - Obesity, unspecified, I10 - Essential (primary) hypertension, K76.0 - Fatty (change of) liver, not elsewhere classified, Z68.37 - Body mass index [BMI] 37.0-37.9, adult ECG 12 lead EKG Today E66.9 - Obesity, unspecified, I10 - Essential (primary) hypertension, K76.0 - Fatty (change of) liver, not elsewhere classified, Z68.37 - Body mass index [BMI] 37.0-37.9, adult Insulin Today E66.9 - Obesity, unspecified, I10 - Essential (primary) hypertension, K76.0 - Fatty (change of) liver, not elsewhere classified, Z68.37 - Body mass index [BMI] 37.0-37.9, adult Complete Blood Count Auto Diff Today E66.9 - Obesity, unspecified, I10 - Essential (primary) hypertension, K76.0 - Fatty (change of) liver, not elsewhere classified, Z68.37 - Body mass index [BMI] 37.0-37.9, adult Lipid Panel Today E66.9 - Obesity, unspecified, I10 - Essential (primary) hypertension, K76.0 - Fatty (change of) liver, not elsewhere classified, Z68.37 - Body mass index [BMI] 37.0-37.9, adult IRON PROFILE Today E66.9 - Obesity, unspecified, I10 - Essential (primary) hypertension, K76.0 - Fatty (change of) liver, not elsewhere classified, Z68.37 - Body mass index [BMI] 37.0-37.9, adult Comprehensive Met. Panel Today E66.9 - Obesity, unspecified, I10 - Essential (primary) hypertension, K76.0 - Fatty (change of) liver, not elsewhere classified, Z68.37 - Body mass index [BMI] 37.0-37.9, adult Zinc Today E66.9 - Obesity, unspecified, I10 - Essential (primary) hypertension, K76.0 - Fatty (change of) liver, not elsewhere classified, Z68.37 - Body mass index [BMI] 37.0-37.9, adult Vitamin B1 Today E66.9 - Obesity, unspecified, I10 - Essential (primary) hypertension, K76.0 - Fatty (change of) liver, not elsewhere classified, Z68.37 - Body mass index [BMI] 37.0-37.9, adult Vitamin A Today E66.9 - Obesity, unspecified, I10 - Essential (primary) hypertension, K76.0 - Fatty (change of) liver, not elsewhere classified, Z68.37 - Body mass index [BMI] 37.0-37.9, adult TSH reflex Free T4 Today E66.9 - Obesity, unspecified, I10 - Essential (primary) hypertension, K76.0 - Fatty (change of) liver, not elsewhere classified, Z68.37 - Body mass index [BMI] 37.0-37.9, adult XR chest 2V Today E66.9 - Obesity, unspecified, I10 - Essential (primary) hypertension, K76.0 - Fatty (change of) liver, not elsewhere classified, Z68.37 - Body mass index [BMI] 37.0-37.9, adult FL upper GI w air Today E66.9 - Obesity, unspecified, I10 - Essential (primary) hypertension, K76.0 - Fatty (change of) liver, not elsewhere classified, Z68.37 - Body mass index [BMI] 37.0-37.9, adult Referrals Nutrition/Dietitian Referral E66.9 - Obesity, unspecified, I10 - Essential (primary) hypertension, K76.0 - Fatty (change of) liver, not elsewhere classified, Z68.37 - Body mass index [BMI] 37.0-37.9, adult Behavioral Health Referral E66.9 - Obesity, unspecified, I10 - Essential (primary) hypertension, K76.0 - Fatty (change of) liver, not elsewhere classified, Z68.37 - Body mass index [BMI] 37.0-37.9, adult Medications: New tirzepatide (weight loss) (Zepbound) for 4 weeks 2.5 mg (0.5 mL) subcut QWEEK 2 mL 0RF E66.812 - Obesity, class 2, I10 - Essential (primary) hypertension, Z68.37 - Body mass index [BMI] 37.0-37.9, adult
== END 2025-04-23 12:04 | disposition home or self-care (01) ==
LOC: HO.HBS 08:56
PROVIDERS: PCP Nurse Practitioner Primary Care; Visit Provider Surgery
DX: E66.812 Obesity, class 2 (principal); Z68.37 Body mass index [BMI] 37.0-37.9, adult
CPT/HCPCS: 98011